=== PATIENT | male | born 1995 | race African-American/Black ===

== ENCOUNTER 2021-06-07 10:02 | Outpatient (CLI) | payer OTHER, SELFPAY | END 2021-06-07 10:03 | disposition home or self-care (01) | LOC: ANHAUDIO 10:05 | PROVIDERS: PCP Nurse Practitioner Family; Visit Provider Nurse Practitioner Family | DX: H91.90 Unspecified hearing loss, unspecified ear (principal) | CPT/HCPCS: 92552; 92556; 92567 ==